=== PATIENT | female | born 2005 | race Caucasian/White ===

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

== ENCOUNTER 2024-04-26 11:58 | Emergency (ER) | payer OTHER, SELFPAY ==
[2024-04-26 12:00] VITALS: BP 154/93
--- NOTE | 2024-04-26 12:38 | ED.GENMED ---
History of Present Illness
General
Chief Complaint: Urinary Symptoms
Source: patient
Exam Limitations: none
Time Seen by Provider: 04/26/24 12:26
History of Present Illness
History of Present Illness:
18yoF with a history of bipolar disorder presenting for evaluation of flank pain. Patient woke up yesterday morning with pain in her left lower back region with associated dysuria. She went to urgent care yesterday and was diagnosed with a UTI and
was started on Macrobid. She has had 2 doses thus far. Her pain has now migrated to the left flank and she is also having suprapubic discomfort. She also reports nausea and decreased oral intake. She reports chills but denies fevers. No
vomiting, vaginal bleeding, vaginal discharge.
Past History
Past History
ED Past Medical History: Psychiatric
ED Past Surgical History: Cholecystectomy and Tonsilectomy
Social History
Tobacco: Non-smoker
Alcohol: None
Drug: None
Personal: Single
Living: with family
Employment: Other
Family History
Family History: Other
Phy Exam
General Physical Exam
General Presentation: well appearing and no apparent distress
General age: appears stated age
General Skin: warm and dry
General Habitus: normal
General Mental: alert
ENT Exam
ENT Exam: normocephalic
Pulmonary Exam
Pulmonary Exam: no respiratory distress
Gastrointestinal Exam
Gastrointestinal Exam: soft, non distended, cva tenderness and other (+Tenderness in suprapubic region and +L CVA tenderness. Abdomen soft, non-distended. No rebound or guarding. )
Neurological Exam
Neurological Exam: alert
Vincent Coma Scale
Eye Opening: Spontaneous
Verbal Response: Oriented
Motor Response: Obeys Commands
GCS Total Score: 15
Skin Exam
Skin Exam: normal color and warm/dry
Psychiatric Exam
Psychiatric Exam: normal mood/affect
Course
Orders/Labs/Results
Orders:
Orders
04/26/24 12:36
0.9% Sodium Chloride 1000 ml [Nss] 1,000 ml IV BOLUS
Ketorolac [Toradol] 15 mg IV NOW STA
Ondansetron Injectable [Zofran] 4 mg IV NOW STA
04/26/24 12:37
CT Abd/pel Without Iv Or Oral Urgent
Comment:
Reason For Exam: L flank pain
Test Result ONCE
04/26/24 12:42
Complete Blood Count/With Diff Urgent
Comprehensive Metabolic Panel Urgent
HCG, Serum Qualitative Screen Urgent
Urinalysis Reflex To Culture Urgent
Date Specimen was Collected: 04/26/24
Time Specimen was Collected: 12:39
Urine Microscopic Reflex Cult Urgent
Urine Culture Urgent
TOMER Source: U
Specimen Description:
Date Specimen was Collected: 04/26/24
Time Specimen was Collected: 12:39
04/26/24 14:20
Cefdinir [Omnicef] 300 mg PO NOW STA
Abnormal Lab Results
04/26/24
12:42
Monocytes % 9.6 H %
(1.7-9.3)
Eosinophils % 9.6 H %
(0-6)
Carbon Dioxide 31 H mmol/L
(22-30)
BUN 4 L mg/dl
(7-17)
Urine Nitrite (Reflex) Positive A
(Negative)
Urine Bilirubin 2+ A
(Negative)
Urine Urobilinogen 3+ A
(Neg - 1+)
Urine RBC 3-6 A /HPF
(0-2)
Urine Bacteria (Reflex) Moderate A
(Negative)
04/26/24 12:42
04/26/24 12:42
Vital Signs
Initial and Last Documented VS:
Initial Vital Signs
Temp Pulse Resp BP Pulse Ox
97.8 F 86 16 154/93 98
04/26/24 12:00 04/26/24 12:00 04/26/24 12:00 04/26/24 12:00 04/26/24 12:00
Last Documented Vital Signs
Temp Pulse Resp BP Pulse Ox
97.8 F 75 16 127/73 98
04/26/24 12:00 04/26/24 14:48 04/26/24 14:48 04/26/24 14:48 04/26/24 14:48
MDM/Problems Addressed
Differential Diagnosis Includes:
18yoF here with UTI symptoms and L flank pain. Started yesterday. Seen at urgent care yesterday and was started on Macrobid. C/o nausea and decreased appetite. No fevers or vomiting. No vaginal symptoms. She is afebrile and hemodynamically stable.
She is well-appearing in no acute distress. Left CVA tenderness noted on exam. Differential diagnosis includes but is not limited to: UTI, pyelonephritis, kidney stone
Initial ED plan: Check CBC, CMP, hCG, UA, and CT abdomen without contrast. IV Toradol, Zofran, and fluid bolus for symptoms.
*Critical Care Note
Total Time (30-74mins, 75-104mins- exclusive of procedures): Not Applicable
Update Note
Update Note:
UA is nitrite positive with moderate bacteria consistent with infection. Lab work unremarkable including normal white count. CT abdomen is negative for acute findings. Specifically, there is no evidence of ureterolithiasis. Moderate to severe
submucosal fat deposition in the cecum and ascending colon incidentally seen suggesting a chronic colitis. Upon questioning, patient does report a history of IBS and previously underwent colonoscopy about 3 years ago which was reportedly normal.
No indication for hospitalization at this time. Will switch antibiotics to cefdinir as Macrobid will not cover for pyelonephritis. Prescription also given for Zofran and she was advised to increase her fluid intake. Advised close PCP follow-up
and strict ED return precautions discussed. She was also given contact information for gastroenterology given her abnormal CT findings. Patient was discharged stable condition.
ED Attending Note
-
Portions of this chart may have been created with voice recognition software.� Occasional wrong word or��sound alike� substitutions may have occurred due to the inherent limitations of voice recognition software.
Discharge Plan
Departure
Patient Disposition: Home (Routine Discharge)
Date of Disposition: 04/26/24
Time of Disposition: 14:21
Patient with high blood pressure during this ER visit?: Yes
Discharge Problem:
Pyelonephritis
Instructions: Urinary tract infection in adults - ED discharge instructions
Prescriptions:
New
cefdinir 300 mg capsule
300 mg PO BID Qty: 14 0RF
ondansetron 4 mg tablet,disintegrating
4 mg PO Q6H PRN (Reason: nausea and vomiting) Qty: 20 0RF
No Action
ibuprofen 400 MG tablet
400 mg PO Q6HPRN PRN (Reason: moderate to severe pain) 0RF
acetaminophen [Aceta] 325 MG tablet
2 tab PO Q4HPRN PRN (Reason: mild to moderate pain) Qty: 1 0RF
ondansetron 4 MG tablet,disintegrating
4 mg PO Q6HPRN PRN (Reason: nausea/vomiting) Qty: 12 0RF
hydrocodone-acetaminophen 1 TABLET tablet
1 tab PO Q4HPRN PRN (Reason: moderate to severe pain) Qty: 12 0RF
omeprazole magnesium [Prilosec OTC] 20 MG tablet,delayed release (DR/EC)
20 mg PO DAILY Qty: 20 0RF
dicyclomine 10 MG capsule
10 mg PO QIDPRN PRN (Reason: nausea)
promethazine 25 MG tablet
12.5 mg PO Q6HPRN PRN (Reason: vomiting) Qty: 10 0RF
lorazepam 0.5 mg tablet
0.5 mg PO BID PRN (Reason: anxiety) Qty: 12 0RF
escitalopram oxalate [Lexapro] 20 mg tablet
20 mg PO DAILY Qty: 30 0RF
gabapentin [Neurontin] 400 mg capsule
400 mg PO DAILY Qty: 30 0RF
lorazepam [Ativan] 0.5 mg tablet
0.5 mg PO BID PRN (Reason: anxiety) Qty: 3 0RF
ondansetron 4 mg tablet,disintegrating
4 mg PO TID PRN (Reason: nausea and vomiting) Qty: 10 0RF
metoprolol succinate 25 mg tablet extended release 24 hr
25 mg PO DAILY Qty: 30 0RF
oxycodone-acetaminophen [Percocet] 5-325 mg tablet
1 - 2 tab PO Q6HPRN PRN (Reason: pain) Qty: 14 0RF
Referrals:
Frank Landeros MD [Family Provider] -
Mylene Colvin MD [Active] -
Activity Restrictions/Additional Instructions:
Switch antibiotics to cefdinir. Drink plenty of fluids. Take Zofran as needed for nausea.
Please follow-up with your family doctor in 3-4 days. You should also follow up with gastroenterology for the possible chronic colitis seen on your CT scan.
Return to the ER with any worsening symptoms, fevers, or inability to keep down medications.
Interventions
Interventions:
*Risk Screen - Suicide Last Done: 04/26/24 12:00
*General Assessment Last Done: 04/26/24 12:00
*Neglect/Abuse Screening Last Done: 04/26/24 12:00
ED- Fall Risk Assessment Last Done: 04/26/24 14:50
*ED COVID-19 Vaccine History Last Done: 04/26/24 14:48
*Nursing Disposition Last Done: 04/26/24 14:50
ED-Female Genitourinary Assessment Last Done: 04/26/24 12:40
Discharge Date and Time
Discharge Date/Time: 04/26/24 14:51
Print Language: MALTESE
[2024-04-26 12:40] VITALS: BMI 24.5
[2024-04-26] MEDS: NSS 1000 IV (12:45)
[2024-04-26] MEDS: ZOFRAN 4 MG IV (12:46)
[2024-04-26] MEDS: TORADOL 15 MG IV (12:46)
[2024-04-26 13:05] LABS: % Basophils 0.8 % (0-2); % Eosinophils 9.6 % (0-6); % Immature Granulocytes 0.2 % (0-0.5); % Lymphocytes 32.4 % (20.5-51.1); % Monocytes 9.6 % (1.7-9.3); % Neutrophils 47.4 % (42.2-75.2); Absolute Eosinophils 0.5 10^3/uL (0-0.7); Absolute Lymphocytes 1.6 10^3/uL (1.2-3.4); Absolute Monocytes 0.5 10^3/uL (0.1-0.6); Absolute Neutrophils 2.3 10^3/uL (1.4-6.5); Hematocrit 44.4 % (37.0-47.0); Mean Corp Hgb Conc. 33.8 g/dL (33.0-37.0); Mean Corpuscular Hgb 30.7 pg (27.0-31.0); Mean Corpuscular Volume 90.8 fL (81.0-99.0); Mean Platelet Volume 10.3 fL (7.4-10.4); Nucleated Red Blood Cells % 0 %; Platelet Count 174 10^3/uL (130-400); Red Blood Cell Count 4.89 10^6/uL (4.20-5.40); Red Cell Dist. Width 12.5 % (11.5-14.5); White Blood Cell Count 4.9 10^3/uL (4.8-10.8)
[2024-04-26 13:06] LABS: Urine Albumin Negative (Neg - Trace); Urine Bilirubin 2+ (Negative); Urine Character Clear (Clear); Urine Color Amber; Urine Glucose Negative (Negative); Urine Ketone Negative (Negative); Urine Leukocyte Negative (Negative); Urine Nitrite Positive (Negative); Urine Occult Blood Negative (Negative); Urine Specific Gravity 1.005 (<1.030); Urine Urobilinogen 3+ (Neg - 1+)
[2024-04-26 13:14] LABS: HCG, Serum Qualitative Screen Negative
[2024-04-26 13:15] LABS: ALT (SGPT) 15 U/L (0-35); AST (SGOT) 22 U/L (14-36); Albumin 4.7 g/dl (3.5-5.0); Alkaline Phosphatase 80 U/L (38-126); Blood Urea Nitrogen 4 mg/dl (7-17); Calcium 9.6 mg/dl (8.4-10.2); Carbon Dioxide 31 mmol/L (22-30); Chloride 100 mmol/L (98-107); Estimated Creatinine Clearance 114 ml/min; Glucose 93 mg/dl (70-99); Potassium 3.8 mmol/L (3.5-5.1); Sodium 138 mmol/L (135-145); Total Bilirubin 1.1 mg/dl (0.2-1.3); Total Protein 7.3 g/dl (6.3-8.2); eGFR > 60.00
[2024-04-26 13:24] LABS: Urine Squamous Cell >30 /LPF (Few)
[2024-04-26 13:27] LABS: Urine Bacteria Moderate (Negative)
[2024-04-26] MEDS: OMNICEF 300 MG PO (14:44)
[2024-04-26 14:48] VITALS: BP 127/73
== END 2024-04-26 14:51 | disposition home or self-care (01) ==
LOC: EMR 11:58
PROVIDERS: Physician Assistant; EMERGENCY PHYSICIAN Emergency Medicine; FAMILY PHYSICIAN Family Medicine
DX: N12 Tubulo-interstitial nephritis, not specified as acute or chronic (principal); R30.0 Dysuria; F31.9 Bipolar disorder, unspecified; Z90.49 Acquired absence of other specified parts of digestive tract
CPT/HCPCS: 99284; 96374; 96375; 96361; 74176; 80053; 81003; 81015; 84703; 85025; 87086

== ENCOUNTER → 2024-06-04 16:50 | Outpatient (REF) | payer OTHER, SELFPAY | LOC: RAD 16:50 | PROVIDERS: ATTENDING PHYSICIAN Nurse Practitioner Family | DX: M54.50 Low back pain, unspecified (principal) | CPT/HCPCS: 72110; 72220 ==

== ENCOUNTER 2024-06-27 13:23 | Emergency (ER) | payer OTHER, SELFPAY ==
[2024-06-27 13:25] VITALS: BP 139/86
[2024-06-27] MEDS: TORADOL 15 MG IV (14:48)
[2024-06-27 14:50] LABS: Urine Albumin Negative (Neg - Trace); Urine Bilirubin Negative (Negative); Urine Character Clear (Clear); Urine Color Yellow; Urine Glucose Negative (Negative); Urine Ketone Negative (Negative); Urine Leukocyte Negative (Negative); Urine Nitrite Negative (Negative); Urine Occult Blood Negative (Negative); Urine Urobilinogen Negative (Neg - 1+)
[2024-06-27 14:51] LABS: % Basophils 0.5 % (0-2); % Immature Granulocytes 0.2 % (0-0.5); % Lymphocytes 30.5 % (20.5-51.1); % Monocytes 9.3 % (1.7-9.3); % Neutrophils 53.5 % (42.2-75.2); Absolute Eosinophils 0.3 10^3/uL (0-0.7); Absolute Lymphocytes 1.7 10^3/uL (1.2-3.4); Absolute Monocytes 0.5 10^3/uL (0.1-0.6); Absolute Neutrophils 2.9 10^3/uL (1.4-6.5); Hematocrit 37.9 % (37.0-47.0); Hemoglobin 13.3 g/dL (12.0-16.0); Mean Corp Hgb Conc. 35.1 g/dL (33.0-37.0); Mean Corpuscular Hgb 30.5 pg (27.0-31.0); Mean Corpuscular Volume 86.9 fL (81.0-99.0); Mean Platelet Volume 10.2 fL (7.4-10.4); Nucleated Red Blood Cells % 0 %; Platelet Count 221 10^3/uL (130-400); Red Blood Cell Count 4.36 10^6/uL (4.20-5.40); Red Cell Dist. Width 12.3 % (11.5-14.5); White Blood Cell Count 5.5 10^3/uL (4.8-10.8)
[2024-06-27 15:02] LABS: ALT (SGPT) 11 U/L (0-35); AST (SGOT) 15 U/L (14-36); Alkaline Phosphatase 64 U/L (38-126); Blood Urea Nitrogen 3 mg/dl (7-17); Calcium 9.7 mg/dl (8.4-10.2); Carbon Dioxide 21 mmol/L (22-30); Chloride 107 mmol/L (98-107); Glucose 120 mg/dl (70-99); Potassium 3.7 mmol/L (3.5-5.1); Sodium 138 mmol/L (135-145); Total Bilirubin 0.6 mg/dl (0.2-1.3); Total Protein 6.5 g/dl (6.3-8.2); eGFR > 60.00
[2024-06-27 15:05] LABS: HCG, Serum Qualitative Screen Negative
--- NOTE | 2024-06-27 15:13 | ED.GENMED ---
History of Present Illness
<Soraya Peace, TECHNICAL PROJECT LEAD - Last Filed: 06/30/24 08:41>
General
Chief Complaint: Flank Pain
Source: patient and family (mother at bedside)
Exam Limitations: none
Time Seen by Provider: 06/27/24 14:06
Nursing documentation reviewed up to this point in time: agreed with
History of Present Illness
History of Present Illness:
18 yo female with hx HTN, IBS, migraines, anxiety/depression, bipolar presents for bilateral pain in her sides, intermittent, comes in waves lasting seconds, started yesterday a.m. Has felt nauseous, no vomiting. Denies UTI symptoms. Denies
constipation. No recollection of overuse or injury. Denies fever/chills.
Past History
<Soraya Peace, TECHNICAL PROJECT LEAD - Last Filed: 06/30/24 08:41>
Past History
ED Past Medical History: Psychiatric (anxiety, depression, bipolar. )
ED Past Surgical History: Cholecystectomy and Tonsilectomy
Social History
Tobacco: Non-smoker
Alcohol: None
Drug: None
Personal: Single
Living: with family
Employment: Employed ([employer])
Family History
Family History: Other
Review of Systems
<Soraya Peace, TECHNICAL PROJECT LEAD - Last Filed: 06/30/24 08:41>
Review of Systems
Allergies reviewed?: Yes
All Other Systems: ROS reviewed and negative except as documented in HPI and ROS
Constitutional: Denies fever or chills
EENT: Denies sore throat
Respiratory: Denies cough or trouble breathing
Cardiac: Denies chest pain
ABD/GI: Reports nausea; Denies abdominal pain, vomiting or diarrhea
: Reports flank pain (bilateral side pain); Denies dysuria, frequency, difficulty voiding, urgency, bleeding, dark urine or discharge
Musculoskeletal: Reports no symptoms
Skin: Reports no symptoms
Neurological: Reports no symptoms
Phy Exam
<Soraya Peace, TECHNICAL PROJECT LEAD - Last Filed: 06/30/24 08:41>
Physical Exam
Physical Exam:
GENERAL: No acute distress. A&Ox3.
CONSTITUTIONAL: Afebrile.
EYES: clear, conjunctivae normal
ENMT: moist mucus membranes, Pharynx nl
RESPIRATORY: Regular respirations, nonlabored, lungs clear.
CARDIOVASCULAR: Regular rate and rhythm, no murmurs, no rubs.
GI: Soft, nontender, normal BS
MUSCULOSKELETAL: No spinal bony tenderness. No aggravation of pain with full ROM of spine, rotation of torso side to side, bends and touches toes and back up with ease. No tenderness to compression/palpation of rib cage. Moves with ease. Well
perfused.
SKIN: Warm, dry, pink
PSYCH: Normal mood and affect. Well kept, interactive and appropriate
NEUROLOGIC: Awake, alert and oriented. No focal neurological deficits
Course
<oSraya Peace, TECHNICAL PROJECT LEAD - Last Filed: 06/30/24 08:41>
Orders/Labs/Results
Orders:
Orders
06/27/24 14:21
Urinalysis Reflex To Culture Urgent
Date Specimen was Collected: 06/27/24
Time Specimen was Collected: 14:14
06/27/24 14:23
Test Result ONCE
06/27/24 14:24
CT Abd/pel Without Iv Or Oral Urgent
Comment:
Reason For Exam: R flank pain
Ketorolac [Toradol] 15 mg IV NOW STA
06/27/24 14:32
Complete Blood Count/With Diff Urgent
Comprehensive Metabolic Panel Urgent
HCG, Serum Qualitative Screen Urgent
Abnormal Lab Results
06/27/24
14:32
Carbon Dioxide 21 L mmol/L
(22-30)
BUN 3 L mg/dl
(7-17)
Glucose 120 H mg/dl
(70-99)
06/27/24 14:32
06/27/24 14:32
Vital Signs
Initial and Last Documented VS:
Initial Vital Signs
Temp Pulse Resp BP Pulse Ox
99.6 F 113 20 139/86 99
06/27/24 13:25 06/27/24 13:25 06/27/24 13:25 06/27/24 13:25 06/27/24 13:25
Last Documented Vital Signs
Temp Pulse Resp BP Pulse Ox
99.6 F 113 20 139/86 99
06/27/24 13:25 06/27/24 13:25 06/27/24 13:25 06/27/24 13:25 06/27/24 13:25
<Brittany Martinez PA-C - Last Filed: 06/27/24 18:19>
Orders/Labs/Results
Orders:
Orders
06/27/24 14:21
Urinalysis Reflex To Culture Urgent
Date Specimen was Collected: 06/27/24
Time Specimen was Collected: 14:14
06/27/24 14:23
Test Result ONCE
06/27/24 14:24
CT Abd/pel Without Iv Or Oral Urgent
Comment:
Reason For Exam: R flank pain
Ketorolac [Toradol] 15 mg IV NOW STA
06/27/24 14:32
Complete Blood Count/With Diff Urgent
Comprehensive Metabolic Panel Urgent
HCG, Serum Qualitative Screen Urgent
Abnormal Lab Results
06/27/24
14:32
Carbon Dioxide 21 L mmol/L
(22-30)
BUN 3 L mg/dl
(7-17)
Glucose 120 H mg/dl
(70-99)
06/27/24 14:32
06/27/24 14:32
Vital Signs
Initial and Last Documented VS:
Initial Vital Signs
Temp Pulse Resp BP Pulse Ox
99.6 F 113 20 139/86 99
06/27/24 13:25 06/27/24 13:25 06/27/24 13:25 06/27/24 13:25 06/27/24 13:25
Last Documented Vital Signs
Temp Pulse Resp BP Pulse Ox
99.6 F 113 20 139/86 99
06/27/24 13:25 06/27/24 13:25 06/27/24 13:25 06/27/24 13:25 06/27/24 13:25
<Soraya Peace NP - Last Filed: 06/30/24 08:41>
MDM/Problems Addressed
Differential Diagnosis Includes:
musculoskeletal pain, UTI, kidney stone, pyelonephritis
MDM/Problems Addressed:
18 yo female with hx HTN, IBS, migraines, anxiety/depression, bipolar presents for bilateral pain in her sides, intermittent, comes in waves lasting seconds, started yesterday a.m. Has felt nauseous, no vomiting. Denies UTI symptoms. Denies
constipation. No recollection of overuse or injury. Denies fever/chills.
Has taken nothing for the pain
Afebrile, NAD
3:15 p.m.
CBC normal
CMP Normal
HCG neg
U/A neg
<Brittany Martinez PA-C - Last Filed: 06/27/24 18:19>
*Critical Care Note
Total Time (30-74mins, 75-104mins- exclusive of procedures): Not Applicable
<Brittany Martinez PA-C - Last Filed: 06/27/24 18:19>
Update Note
Update Note:
6:16 pm Sign out to Brittany Martinez PA-C: On my assessment, patient is well appearing in no acute distress. CT negative. Instructed pt to use ibuprofen and follow up with her primary care provider.
ED Attending Note
<Soraya Peace NP - Last Filed: 06/30/24 08:41>
-
Portions of this chart may have been created with voice recognition software.� Occasional wrong word or��sound alike� substitutions may have occurred due to the inherent limitations of voice recognition software.
Discharge Plan
Departure
Patient Disposition: Home (Routine Discharge)
Date of Disposition: 06/27/24
Time of Disposition: 18:10
Patient with high blood pressure during this ER visit?: No
Condition: Good
Discharge Problem:
Bilateral flank pain
Instructions: Flank Pain (DC)
Prescriptions:
No Action
ibuprofen 400 MG tablet
400 mg PO Q6HPRN PRN (Reason: moderate to severe pain) 0RF
acetaminophen [Aceta] 325 MG tablet
2 tab PO Q4HPRN PRN (Reason: mild to moderate pain) Qty: 1 0RF
ondansetron 4 MG tablet,disintegrating
4 mg PO Q6HPRN PRN (Reason: nausea/vomiting) Qty: 12 0RF
hydrocodone-acetaminophen 1 TABLET tablet
1 tab PO Q4HPRN PRN (Reason: moderate to severe pain) Qty: 12 0RF
omeprazole magnesium [Prilosec OTC] 20 MG tablet,delayed release (DR/EC)
20 mg PO DAILY Qty: 20 0RF
dicyclomine 10 MG capsule
10 mg PO QIDPRN PRN (Reason: nausea)
promethazine 25 MG tablet
12.5 mg PO Q6HPRN PRN (Reason: vomiting) Qty: 10 0RF
lorazepam 0.5 mg tablet
0.5 mg PO BID PRN (Reason: anxiety) Qty: 12 0RF
escitalopram oxalate [Lexapro] 20 mg tablet
20 mg PO DAILY Qty: 30 0RF
gabapentin [Neurontin] 400 mg capsule
400 mg PO DAILY Qty: 30 0RF
lorazepam [Ativan] 0.5 mg tablet
0.5 mg PO BID PRN (Reason: anxiety) Qty: 3 0RF
ondansetron 4 mg tablet,disintegrating
4 mg PO TID PRN (Reason: nausea and vomiting) Qty: 10 0RF
metoprolol succinate 25 mg tablet extended release 24 hr
25 mg PO DAILY Qty: 30 0RF
oxycodone-acetaminophen [Percocet] 5-325 mg tablet
1 - 2 tab PO Q6HPRN PRN (Reason: pain) Qty: 14 0RF
cefdinir 300 mg capsule
300 mg PO BID Qty: 14 0RF
ondansetron 4 mg tablet,disintegrating
4 mg PO Q6H PRN (Reason: nausea and vomiting) Qty: 20 0RF
Referrals:
Winter Brush CRNP [Family Provider] - As needed
Activity Restrictions/Additional Instructions:
As we discussed your workup here today shows nothing worrisome.
Specifically, no sign of a kidney infection/urine infection
Your abdominal/pelvis CT shows nothing worrisome.
Ibuprofen 600 mg, with food, every 6 hours as needed for discomfort. A heating pad may also help.
See your doctor for recheck if your symptoms are not completely gone within one week. Avoid any lifting or other activity that aggravates the pain
Interventions
Interventions:
*Risk Screen - Suicide Last Done: 06/27/24 13:44
*General Assessment Last Done: 06/27/24 13:25
*Neglect/Abuse Screening Last Done: 06/27/24 13:44
*ED COVID-19 Vaccine History Last Done: 06/27/24 13:44
*Nursing Disposition Last Done: 06/27/24 18:19
WR-Labeoc-K[facility] Assessment Last Done: 06/27/24 14:05
ED-Female Genitourinary Assessment Last Done: 06/27/24 14:05
Discharge Date and Time
Discharge Date/Time: 06/27/24 18:25
Print Language: [place]
== END 2024-06-27 18:25 | disposition home or self-care (01) ==
LOC: EMR 13:23
PROVIDERS: Registered Nurse; EMERGENCY PHYSICIAN Student in an Organized Health Care Education/Training Program; FAMILY PHYSICIAN Nurse Practitioner Family
DX: R10.9 Unspecified abdominal pain (principal); I10 Essential (primary) hypertension; F41.9 Anxiety disorder, unspecified; F31.9 Bipolar disorder, unspecified
CPT/HCPCS: 99284; 96374; 74176; 80053; 81003; 84703; 85025

== ENCOUNTER 2024-07-18 06:16 | Day surgery (SDC) | payer OTHER, SELFPAY | END 2024-07-18 08:51 | disposition home or self-care (01) | LOC: GI 06:16 | PROVIDERS: ATTENDING PHYSICIAN Internal Medicine Gastroenterology | DX: R93.3 Abnormal findings on diagnostic imaging of other parts of digestive tract (principal); R19.4 Change in bowel habit; D12.2 Benign neoplasm of ascending colon | CPT/HCPCS: 45385; 88305 ==